=== PATIENT | male | born 1990 | race Asian ===

== ENCOUNTER 2025-03-30 09:14 | Emergency (ER) | payer OTHER, SELFPAY ==
[2025-03-30 09:14] VITALS: BP 119/75; PULSE 54; RESP 13; TEMP 36.6; O2SAT 100; BMI 22.8
--- NOTE | 2025-03-30 09:23 | DI.RAD.S_ITS ---
PROCEDURE: XR CHEST 1V INDICATIONS: Chest Pain TECHNIQUE: One view of the chest was acquired. COMPARISON: None. FINDINGS: Surgical changes and devices: None. Lungs and pleura: Lungs are clear. No pleural effusions or pneumothorax. Mediastinum: Mediastinal contours appear normal. Heart size is normal. Bones and chest wall: No suspicious bony lesions. Overlying soft tissues appear unremarkable. IMPRESSION: Normal. Dictated by: Sandeep Molina M.D. on 03/30/2025 at 8:43 Approved by: Sandeep Molina M.D. on 03/30/2025 at 8:44
[2025-03-30 09:25] VITALS: BP 119/75; PULSE 56; O2SAT 99
--- NOTE | 2025-03-30 09:28 | EKG_ITS ---
[address] [address] Test Date: 2025-03-30 Pat Name: Jory Bird Department: Room: Gender: Male [employer] Reservationist: JANET : 1990 Requested By: Order Number: [id number] Reading MD: Robb Parada Measurements Intervals [place] Rate: 58 P: 66 ID: [id number] QRS: 77 QRSD: 90 T: 62 QT: 422 QTc: 414 Interpretive Statements Sinus bradycardia Electronically Signed On 04-02-2025 16:17:13 PDT by Robb Parada
[2025-03-30 09:30] VITALS: BP 108/69; PULSE 51; RESP 17; O2SAT 100
[2025-03-30 09:42] LABS: Add Manual Diff / Slide Review NO; Basophils Absolute Auto 0 /uL (0-100); Basophils Percent Auto 0.4 % (0-2); Eosinophils Absolute Auto 100 /uL (0-450); Eosinophils Percent Auto 2.3 % (2-4); Hematocrit 46.4 % (41-53); Hemoglobin 15.9 g/dL (13.5-17.5); Lymphocytes Absolute Auto 1600 /uL (1100-4500); Lymphocytes Percent Auto 30.7 % (25-40); Mean Corpuscular HGB Conc 34.2 % (30-36); Mean Corpuscular Hemoglobin 32.1 PG (26-34); Mean Corpuscular Volume 93.8 fL (80-100); Monocytes Absolute Auto 400 /uL (0-900); Neutrophils Absolute Auto 3200 /uL (1500-7000); Neutrophils Percent Auto 59.6 % (50-75); Platelet Count 128 X10^3/uL (150-400); Red Blood Cell Count 4.95 X10^6/uL (4.5-5.9); Red Cell Distribution Width 13.8 % (11.6-14.8); White Blood Cell Count 5.3 X10^3/uL (4.5-11.0)
[2025-03-30 09:50] LABS: Prothrombin Time 11.3 SECONDS (9.4-12.5)
[2025-03-30 09:53] LABS: PTT Partial Thromboplastin Tim 35 SECONDS (25.1-36.5)
[2025-03-30 09:55] LABS: Alanine Aminotransferase 24 IU/L (<50); Albumin 4.8 g/dL (3.5-5.0); Albumin Globulin Ratio 1.6 (1.0-2.8); Alkaline Phosphatase 60 U/L (38-126); Aspartate Aminotransferase 29 IU/L (17-59); BUN Creatinine Ratio 19.1 (6-22); Blood Urea Nitrogen 18 mg/dL (9-20); Calcium 9.4 mg/dL (8.4-10.2); Carbon Dioxide 24 mmol/L (22-32); Chloride 105 mmol/L (98-107); Creatine Kinase 64 U/L (55-170); Estimated Glomerular Filt Rate > 60 mL/min (>60); Glucose 95 mg/dL (70-99); HEMOLYSIS < 15 (0-50); Lipase 93 U/L (23-300); Magnesium 1.9 mg/dL (1.6-2.3); Potassium 3.9 mmol/L (3.4-5.1); Sodium 139 mmol/L (137-145); Total Protein 7.8 g/dL (6.3-8.2)
[2025-03-30 10:00] VITALS: BP 113/66; PULSE 56; RESP 20; O2SAT 100
[2025-03-30 10:06] LABS: NT-proBNP (BNP-Adult 18+) < 20 pg/mL (<125); Troponin I < 0.012 ng/mL (0.01-0.034)
--- NOTE | 2025-03-30 10:24 | ED_ITS ---
HPI - Arrhythmia/Palpitations General Chief Complaint: Arrhythmia/Palpitations Stated Complaint: Feels like he is in Afib Time Seen by Provider: 03/30/25 10:23 Source: patient Mode of arrival: Ambulatory Limitations: no limitations History of Present Illness HPI narrative: 35-year-old male no reported medical issues complaint of sensation of irregular heartbeat last night. None currently. Patient states last night he had had a beer and some food he has a little bit of abdominal discomfort that resolved and then later felt some palpitation type symptoms that his heartbeat was very strong. He states lasted for a little while has a resolved. He was not having any persistent currently. Never had any chest pain or pressure, no shortness of breath, no nausea or vomiting. No sweating or diaphoresis. No fevers. Denies any issues with bowel movements, no issues with urination. No new swelling in extremities. States he has been very stressed for the last couple years his missed his last annual exams for the past 2 years so was concerned he might be having a medical problem. He denies any medical issues does not take any daily medications. States he was had his appendix removed in the past. Denies any drug allergies. No tobacco, has a beer twice monthly, no recreational drugs. Does have a primary care physician lives in the [facility] and is visiting the area for the weekend. Related Data Allergies Allergy/AdvReac Type Severity Reaction Status Date / Time No Known Drug Allergies Allergy Verified 03/30/25 09:36 Review of Systems Review of Systems ROS Unobtainable: All systems reviewed & are unremarkable except as noted in HPI and below Patient History Social History Smoking Status: Unknown if ever smoked Smoking Status: Unknown if ever smoked Exam Narrative Exam Narrative: GENERAL: Alert and oriented x three, male in no acute distress HEENT: Head normocephalic, atraumatic, EOMI, pupils reactive, face symmetric, moist mucous membranes NECK: Supple, full range of motion CARDIOVASCULAR: Regular rate and rhythm without murmurs, rubs or gallops. No JVD. No edema. RESPIRATORY: Breath sounds equal bilaterally, no wheezes rales or rhonchi. ABDOMEN: Soft, nontender. Normoactive bowel sounds all 4 quadrants. No guarding or rebound, rigidity, no mass : No CVA tenderness EXTREMITIES: Normal range of motion, no clubbing or edema. Neurovascularly intact NEUROLOGICAL: Cranial nerves II through XII grossly intact. Moving all extremities SKIN: Warm, dry, no petechiae, no rashes or lesions. Initial Vital Signs Initial Vital Signs: Vital Signs Temperature 97.8 F 03/30/25 09:14 Pulse Rate 54 L 03/30/25 09:14 Respiratory Rate 13 03/30/25 09:14 Blood Pressure 119/75 03/30/25 09:14 Pulse Oximetry 100 03/30/25 09:14 Oxygen Delivery Method Room Air 03/30/25 09:14 Course Orders Ordered: ED Orders 03/30/25 09:23 XR chest 1V Stat EKG-12 Lead Stat 03/30/25 09:30 Complete Blood Count AUTO DIFF Stat Comprehensive Metabolic Panel Stat Lipase Stat Magnesium Stat NT-proBNP (BNP-Adult 18+) Stat PTT Partial Thromboplastin Favio Stat Prothrombin Time INR Stat Troponin & CK Cardiac Panel Stat Discontinued Medications Aspirin (Aspirin 81 Mg Chew Tab) 324 mg PO NOW ONE Stop: 03/30/25 09:24 Last Admin: 03/30/25 09:40 Dose: Not Given Documented By: CHRISTIAN Vital Signs Vital signs: Vital Signs - 8 hr 03/30/25 09:14 03/30/25 09:25 03/30/25 09:25 Temperature 97.8 F Pulse Rate 54 L 56 L Respiratory Rate 13 Blood Pressure 119/75 119/75 Pulse Oximetry 100 99 Oxygen Delivery Method Room Air 03/30/25 09:30 03/30/25 09:30 03/30/25 10:00 Temperature Pulse Rate 51 L Respiratory Rate 17 Blood Pressure 108/69 113/66 Pulse Oximetry 100 Oxygen Delivery Method 03/30/25 10:00 03/30/25 10:30 03/30/25 10:30 Temperature Pulse Rate 56 L 58 L Respiratory Rate 20 13 Blood Pressure 104/62 Pulse Oximetry 100 100 Oxygen Delivery Method Room Air MDM - Arrhythmia/Palpitations Lab Data 03/30/25 09:30 03/30/25 09:30 Labs: Lab Results 03/30/25 Range/Units 09:30 WBC 5.3 (4.5-11.0) X10^3/uL RBC 4.95 (4.5-5.9) X10^6/uL Hgb 15.9 (13.5-17.5) g/dL Hct 46.4 (41-53) % MCV 93.8 (80-100) fL MCH 32.1 (26-34) PG MCHC 34.2 (30-36) % RDW 13.8 (11.6-14.8) % Plt Count 128 L (150-400) X10^3/uL Neut % (Auto) 59.6 (50-75) % Lymph % (Auto) 30.7 (25-40) % Power % (Auto) 7.0 (3-14) % Eos % (Auto) 2.3 (2-4) % Baso % (Auto) 0.4 (0-2) % Neut # (Auto) 3200 (5086-1172) /uL Lymph # (Auto) 1600 (5680-2542) /uL Power # (Auto) 400 (0-900) /uL Eos # (Auto) 100 (0-450) /uL Baso # (Auto) 0 (0-100) /uL PT 11.3 (9.4-12.5) SECONDS INR 1.0 (0.9-1.3) APTT 35 (25.1-36.5) SECONDS Sodium 139 (137-145) mmol/L Potassium 3.9 (3.4-5.1) mmol/L Chloride 105 (98-107) mmol/L Carbon Dioxide 24 (22-32) mmol/L BUN 18 (9-20) mg/dL Creatinine 0.94 (0.66-1.25) mg/dL Estimated GFR > 60 (>60) mL/min BUN/Creatinine Ratio 19.1 (6-22) Glucose 95 (70-99) mg/dL Calcium 9.4 (8.4-10.2) mg/dL Magnesium 1.9 (1.6-2.3) mg/dL Total Bilirubin 1.0 (0.2-1.3) mg/dL AST 29 (17-59) IU/L ALT 24 (<50) IU/L Alkaline Phosphatase 60 (38-126) U/L Total Creatine Kinase 64 (55-170) U/L Troponin I < 0.012 (0.01-0.034) ng/mL NT-Pro-B Natriuret Pep < 20 (<125) pg/mL Total Protein 7.8 (6.3-8.2) g/dL Albumin 4.8 (3.5-5.0) g/dL Globulin 3.0 (1.7-4.1) g/dL Albumin/Globulin Ratio 1.6 (1.0-2.8) Lipase 93 (23-300) U/L ECG Data Attestation: I personally reviewed and interpreted this ECG as follows: Prior ECG tracings: not available for review Interpretation: EKG shows sinus bradycardia no acute ST changes. No prior for comparison. MDM Narrative Medical decision making narrative: Labs show normal white count hemoglobin and platelets of 128.? Electrolytes, BUN, creatinine LFTs are negative troponins less than 0.012 with a BNP of less than 20.? Potassium 3.9 Mag is 1.9. EKG shows sinus bradycardia no acute ST changes. No prior for comparison Chest x-ray shows no acute change. 35-year-old male with sensation of palpitations last night. Patient was states symptoms have improved. Workup here shows no major changes, no changes on telemetry. Discussed with the patient can follow up if any persistence but mild symptoms for Holter or ZIO patch. He does have a primary care in [facility] where he lives. Discharge Plan Departure Patient Disposition: Home Clinical Impression: Palpitations Instructions: DI for Palpitations Activity Restrictions/Additional Instructions: Follow up with your physician for recheck if you are having any persistent symptoms. If you continue to have palpitations or a sense of very stronger irregular heartbeat they can follow up with a Holter monitor or ZIO patch to evaluate for any arrhythmias or changes to the rhythm of your heart. Please return here or to the closest ER if you get new chest pain, shortness of breath, passing out, persistent irregular or fast heartbeat, lightheadedness or passing out, new swelling of your extremities or other new or concerning changes. Stand Alone Forms: Patient Portal/API/Survey
[2025-03-30 10:30] VITALS: BP 104/62; PULSE 58; RESP 13; O2SAT 100
== END 2025-03-30 10:41 | disposition home or self-care (01) ==
PROVIDERS: Emergency Provider Emergency Medicine
DX: R00.2 Palpitations (principal); R10.9 Unspecified abdominal pain
CPT/HCPCS: 36415; 71045; 80053; 82550; 83690; 83735; 83880; 84484; 85025; 85610; 85730; 93005; 99283; 99284